=== PATIENT | male | born 1960 ===

== ENCOUNTER 2020-09-20 09:33 | Outpatient (CLI) | payer OTHER ==
[~2020-09-20 09:33] MED LIST: CATAPRES0.1 MG; CRESTOR10 MG; TOPROL XL25 MG
== END 2020-09-20 09:57 | disposition home or self-care (01) ==
LOC: TOM 09:33
PROVIDERS: ATTEND Urology
DX: N40.0 Benign prostatic hyperplasia without lower urinary tract symptoms (principal); R10.84 Generalized abdominal pain; M54.5 Low back pain